=== PATIENT | female | born 1985 | race Caucasian/White ===

== ENCOUNTER 2016-11-01 06:57 | Emergency (ER) | payer OTHER ==
[2016-11-01 07:08] VITALS: BP 118/72
== END 2016-11-01 08:02 | disposition home or self-care (01) ==
LOC: ED 06:57
DX: M54.5 Low back pain (principal); N39.0 Urinary tract infection, site not specified; Z79.1 Long term (current) use of non-steroidal anti-inflammatories (NSAID)
CPT/HCPCS: J1885